=== PATIENT | male | born 1975 ===

== ENCOUNTER 2025-01-26 16:49 | Emergency (ER) | payer BC, SELFPAY ==
[2025-01-26 16:58] VITALS: BP 138/78; PULSE 67; RESP 16; TEMP 37.1; O2SAT 98
--- NOTE | 2025-01-26 17:03 | ED.SKABFB ---
HPI - Skin/Abscess/Foreign Bdy General Chief complaint: Skin/Abscess/Foreign Body Stated complaint: Fever/Bug Bites Time Seen by Provider: 01/26/25 17:04 Source: patient Mode of arrival: ambulatory Limitations: no limitations History of Present Illness HPI narrative: 49 y/o male presented for c/o insect bites x3 to the neck, right under arm, and right ankle for one week. Says the sites are all tender. Denies any drainage. The site to the right under arm is more irritated due to friction from frequently running. Pt reports temp of 99.5 yesterday. Denies any other symptoms. has not applied anything to the sites. Related Data Allergies Allergy/AdvReac Type Severity Reaction Status Date / Time No Known Allergies Allergy Verified 01/26/25 17:10 Review of Systems Review of Systems: CONSTITUTIONAL: Denies body aches, fever, chills, or sweats. EYES: Denies visual changes, redness, or discharge. ENT: Denies rhinorrhea, congestion CARDIOVASCULAR: Denies chest pain, palpitations, or edema. RESPIRATORY: Denies cough or dyspnea. GASTROINTESTINAL: Denies abdominal pain, nausea, vomiting, or diarrhea. SKIN: per HPI MUSCULOSKELETAL: Denies back pain, joint pain, or myalgia. NEUROLOGIC: Denies headache, numbness, tingling, or weakness. PMFSH Comments At time of signature, I have reviewed and agree with nursing past medical, surgical, social and family history unless otherwise noted. Please see nursing chart for further information. There is no relevant family history pertinent to the presenting complaint Exam Narrative: GENERAL: Well-appearing HEAD: Normocephalic, atraumatic. EYES: conjunctivae clear, and EOMI. ENT: Mucous membranes moist. Oropharynx without edema, erythema or lesions. NECK: Supple. No lymphadenopathy CHEST: Clear to auscultation. HEART: Regular rate and rhythm. SKIN: Warm, dry. Right anterior ankle, Right posterior neck and right axilla with round scabbed lesions, approx 1cm diameter no active drainage, mildly tender. The axilla lesion appears bright red, no fluctuance or induration. NEURO: Alert and oriented x3. Course Course Emergency Course: Patient is aware of diagnosis, understands and agrees to treatment plan. Anticipatory guidance given. Patient agrees to follow-up as directed and is aware of reasons to seek care at the emergency department. Portions of this record may have been created with voice recognition software Level of Care: Express Care Visit Vital Signs Vital signs: Vital Signs Temperature 98.7 F 01/26/25 16:58 Pulse Rate 67 01/26/25 16:58 Respiratory Rate 16 01/26/25 16:58 Blood Pressure 138/78 01/26/25 16:58 Pulse Oximetry 98 01/26/25 16:58 Temperature 98.7 F 01/26/25 16:58 Pulse Rate 67 01/26/25 16:58 Respiratory Rate 16 01/26/25 16:58 Blood Pressure 138/78 01/26/25 16:58 Pulse Oximetry 98 01/26/25 16:58 Reviewed MDM - Skin/Abscess/Foreign Bdy MDM Narrative Medical decision making narrative: Discussed physical exam findings. Advised supportive measures and signs/symptoms to go to the ER. Pt is appropriate for outpt treatment and f/u. Differential Diagnosis Differential diagnosis: Likely abscess of skin or subcutaneous tissue, viral exanthem, dermatophytosis, urticaria, herpes zoster, cellulitis, eczema, insect bites, impetigo and contact dermatitis Discharge Plan Discharge Clinical Impression: Insect bites Patient Disposition: Home Condition: Stable Instructions: Antibiotic Form, Insect Bite or Sting (ED) Additional Instructions: Keep the areas clean and dry - cleanse with warm water and mild soap and allow to fully dry. Keep it open to air (no bandages) Watch for worsening symptoms including pain, redness, swelling, streaking, pus/drainage, fever. Go to the ER with any of these symptoms or concerns. Follow up with primary care provider in as needed. Patient Language: [place] Prescriptions: New cephalexin 500 mg capsule 500 mg PO Q12H 5 Days Qty: 10 0RF Follow-up/Referrals: PHYSICIAN,MICROBIOLOGY LABORATORY MANAGER [Primary Care Provider] - Time of Disposition: 17:15
== END 2025-01-26 17:17 | disposition home or self-care (01) ==
PROVIDERS: Emergency Provider Nurse Practitioner Family
DX: S10.96XA Insect bite of unspecified part of neck, initial encounter (principal); S40.861A Insect bite (nonvenomous) of right upper arm, initial encounter; S90.561A Insect bite (nonvenomous), right ankle, initial encounter; W57.XXXA Bitten or stung by nonvenomous insect and other nonvenomous arthropods, initial encounter
CPT/HCPCS: 99203; G0463